=== PATIENT | male | born 1980 | race Caucasian/White ===

== ENCOUNTER 2022-09-09 09:17 | Outpatient (CLI) | payer OTHER, SELFPAY ==
[2022-09-09 10:17] LABS: Albumin* 4.7 g/dL (3.3-5.0)
[2022-09-09 10:18] LABS: Chloride* 107 mmol/L (96-114); Potassium* 4.3 mmol/L (3.6-5.1); Sodium* 141 mmol/L (135-149)
[2022-09-09 10:20] LABS: Aspartate Amino Transferase* 29 U/L (12-35); Bilirubin Total* 0.7 mg/dL (0.1-1.5); Carbon Dioxide* 26 mmol/L (20-32); Cholesterol* 253 mg/dL (90-199); Creatinine* 0.9 mg/dL (0.5-1.5); Estimated Glomerular Filt Rate 111 ml/min
[2022-09-09 10:21] LABS: Alanine Aminotransferase* 36 U/L (4-50); Alkaline Phosphatase* 70 U/L (40-150); Blood Urea Nitrogen* 24 mg/dL (5-24); Calcium* 9.3 mg/dL (8.4-10.6); Glucose* 98 mg/dL (60-115); HDL Cholesterol* 37 mg/dL (>=40); LDL Cholesterol Calculated 159 mg/dL (<100); Total Protein* 7.6 g/dL (6.0-8.3); Triglycerides* 287 mg/dL (40-149)
[2022-09-09 10:52] LABS: PSA Screen* 0.51 ng/mL (0.10-4.00)
== END 2022-09-09 09:18 | disposition home or self-care (01) ==
PROVIDERS: PCP Internal Medicine; Visit Provider Internal Medicine
DX: I10 Essential (primary) hypertension (principal); Z12.5 Encounter for screening for malignant neoplasm of prostate; Z13.6 Encounter for screening for cardiovascular disorders
CPT/HCPCS: 80053; 80061; 84153

== ENCOUNTER 2023-11-13 09:00 | Outpatient (CLI) | payer OTHER, SELFPAY | END 2023-11-13 09:01 | disposition home or self-care (01) | LOC: NFLDREF 11-15 11:26 | PROVIDERS: PCP Internal Medicine; Referring Provider Internal Medicine; Visit Provider Internal Medicine | DX: I10 Essential (primary) hypertension (principal); E78.5 Hyperlipidemia, unspecified; Z12.5 Encounter for screening for malignant neoplasm of prostate | CPT/HCPCS: 80053; 80061; G0103 ==

== ENCOUNTER 2024-12-30 08:35 | Outpatient (CLI) | payer BC, SELFPAY | END 2024-12-30 08:36 | disposition home or self-care (01) | LOC: NFLDREF 01-02 19:35 | PROVIDERS: PCP Internal Medicine; Referring Provider Internal Medicine; Visit Provider Internal Medicine | DX: I10 Essential (primary) hypertension (principal); E78.5 Hyperlipidemia, unspecified | CPT/HCPCS: 80053; 80061 ==

== ENCOUNTER 2025-01-01 09:06 | Outpatient (CLI) | payer BC, SELFPAY | END 2025-01-01 09:07 | disposition home or self-care (01) | LOC: NFLDREF 01-08 02:34 | PROVIDERS: PCP Internal Medicine; Referring Provider Internal Medicine; Visit Provider Internal Medicine | DX: E78.5 Hyperlipidemia, unspecified; Z00.01 Encounter for general adult medical examination with abnormal findings | CPT/HCPCS: 80061 ==